=== PATIENT | male | born 1960 | race Hispanic/Latino ===

== ENCOUNTER 2016-08-25 16:05 | Emergency (ER) | payer BC ==
[2016-03-03 14:39] VITALS: BMI 23.6
== END 2016-08-25 19:00 | disposition home or self-care (01) ==
LOC: ED 16:05
DX: M54.2 Cervicalgia (principal)

== ENCOUNTER 2017-07-09 09:01 | Emergency (ER) | payer BC, OTHER ==
[2017-07-09 09:01] VITALS: BMI 23.6
--- NOTE | 2017-07-09 09:30 | ED PDOC ---
Arrival/HPI - General Chief Complaint: Cough, Cold, Congestion Time Seen by Provider: 07/09/17 09:19 Historian: Patient - History of Present Illness Narrative History of Present Illness (Text): 07/09/17 09:27 56yr old male presents today with a 2 month history of non productive cough associated with left sided pectoralis and left subscapular pain. pt states pain started prior to cough. pt denies uri symptoms. denies acid reflux. eating and drinking well. no n/v/d/c. pt denies shortness of breath. denies fever/chills. pt denies lower leg swelling or pain. Time/Duration: > month (2 months) Past Medical History - Provider Review Nursing Documentation Reviewed: Yes - Travel History Have you recently traveled outside [place] w/in the past 3 mons?: No - Past History Past History: No Previous - Tetanus Immunization Tetanus Immunization: Up to Date - Cardiac Hx Cardiac Disorders: No - Pulmonary Hx Respiratory Disorders: No - Neurological Hx Neurological Disorder: No - HEENT Hx HEENT Disorder: No - Renal Hx Renal Disorder: Yes Hx Kidney Stones: Yes - Endocrine/Metabolic Hx Endocrine Disorders: No - Hematological/Oncological Hx Blood Disorders: No - Integumentary Hx Dermatological Disorder: No - Musculoskeletal/Rheumatological Hx Musculoskeletal Disorders: Yes Hx Fractures: Yes - Gastrointestinal Hx Gastrointestinal Disorders: No - Genitourinary/Gynecological Hx Genitourinary Disorders: No - Psychiatric Hx Psychophysiologic Disorder: No Hx Substance Use: No - Past Surgical History Past Surgical History: No Previous - Surgical History Hx Tonsillectomy: Yes Other/Comment: R/T FRACTURE - Anesthesia Hx Anesthesia Reactions: No Hx Malignant Hyperthermia: No - Suicidal Assessment Feels Threatened In Home Enviroment: No Family/Social History - Physician Review Nursing Documentation Reviewed: Yes Family/Social History: Neoplasm/Cancer (breast cancer) Smoking Status: Never Smoked Hx Alcohol Use: No Hx Substance Use: No Allergies/Home Meds Allergies/Adverse Reactions: Allergies No Known Allergies Allergy (Verified 07/09/17 09:13) Review of Systems - Review of Systems Constitutional: absent: Fatigue, Fevers ENT: absent: Sore Throat, Sinus Congestion Respiratory: Cough. absent: SOB, Wheezing Cardiovascular: absent: Palpitations Gastrointestinal: absent: Abdominal Pain, Diarrhea, Vomiting Genitourinary Male: absent: Dysuria Musculoskeletal: Back Pain Skin: absent: Rash Neurological: absent: Headache, Dizziness Psychiatric: absent: Anxiety, Depression, Suicidal Ideation Physical Exam Vital Signs Reviewed: Yes Vital Signs Temp Pulse Resp BP Pulse Ox 07/09/17 09:56 86 20 146/86 99 07/09/17 09:25 97.8 F 77 16 142/80 98 Temperature: Afebrile Blood Pressure: Hypertensive Pulse: Regular Respiratory Rate: Normal Appearance: Positive for: Well-Appearing, Non-Toxic, Comfortable Pain Distress: None Mental Status: Positive for: Alert and Oriented X 3 - Systems Exam Head: Present: Atraumatic Mouth: Present: Moist Mucous Membranes Pharnyx: Present: Normal Neck: Present: Normal Range of Motion Respiratory/Chest: Present: Clear to Auscultation, Good Air Exchange, Other ( dry cough noted.). No: Respiratory Distress, Accessory Muscle Use, Wheezes, Tachypneic Cardiovascular: Present: Regular Rate and Rhythm Upper Extremity: Present: Normal ROM Lower Extremity: Present: Normal Inspection, Normal ROM. No: Edema Neurological: Present: GCS=15, Speech Normal Skin: Present: Warm, Dry, Normal Color. No: Rashes Psychiatric: Present: Alert, Oriented x 3 Medical Decision Making ED Course and Treatment: 07/09/17 09:31 56yr old male with 2 month history of dry cough. cbc wnl cmp: bun; 23 cr 1.0 ESR EKG; sinus bradycardia at 59 bpm normal axis normal intervals no ST elevations trop; within normal limits bnp; wnl cxr: wnl 07/09/17 10:51 pt given albuterol nebulizer. spoke with dr. santana; pt will need PFTs. PFTs ordered; 07/09/17 11:50 impression; cough pulmicort twice daily f/u with pmd return if symptoms worsen,persist or if new symptoms develop. - Lab Interpretations Lab Results: 07/09/17 09:20 07/09/17 09:20 Lab Results 07/09/17 09:30: Lactate Dehydrogenase 383, Total Creatine Kinase 48, Troponin I < 0.01, NT-Pro-B Natriuret Pep 40.5 07/09/17 09:30: D-Dimer, Quantitative 233 07/09/17 09:20: WBC 6.0, RBC 5.04, Hgb 15.5, Hct 46.0, MCV 91.3, MCH 30.8, MCHC 33.7, RDW 12.9, Plt Count 228, MPV 10.7, Gran % 60.8, Lymph % (Auto) 30.7, [place] % (Auto) 7.0 H, Eos % (Auto) 1.3 L, Baso % (Auto) 0.2, Gran # 3.62, Lymph # ( Auto) 1.8, [place] # (Auto) 0.4, Eos # (Auto) 0.1, Baso # (Auto) 0.01, ESR 5 07/09/17 09:20: Sodium 150 H, Potassium 4.2, Chloride 108 H, Carbon Dioxide 27, Anion Gap 18, BUN 23 H, Creatinine 1.0, Est GFR ( Amer) > 60, Est GFR ( Non-Af Amer) > 60, Random Glucose 104, Calcium 9.7, Total Bilirubin 2.9 H, AST 23, ALT 25, Alkaline Phosphatase 67, Total Protein 7.5, Albumin 4.6, Globulin 2.9, Albumin/Globulin Ratio 1.6, Triglycerides 89, Cholesterol 195, LDL Cholesterol Direct 102, HDL Cholesterol 58 - RAD Interpretation Radiology Orders: 07/09/17 09:19 CHEST TWO VIEWS (PA/LAT) [RAD] Stat Disposition/Present on Arrival - Present on Arrival Any Indicators Present on Arrival: No History of DVT/PE: No History of Uncontrolled Diabetes: No Urinary Catheter: No History of Decub. Ulcer: No History Surgical Site Infection Following: None - Disposition Have Diagnosis and Disposition been Completed?: Yes Diagnosis: Cough Disposition: HOME/ ROUTINE Disposition Time: 10:15 Patient Plan: Discharge Patient Problems: Current Active Problems Problem Status Onset Cough Acute Condition: GOOD Discharge Instructions (ExitCare): Cough in Adults Additional Instructions: follow up with the primary care physician within the next 2 days return if symptoms worsen,persist or if new symptoms develop. Prescriptions: Budesonide [Pulmicort Flexhaler] 90 mcg IH BID #1 [email or web address] Referrals: Eder Santana MD [Primary Care Provider] - Follow up with primary Damion Blanc MD [Staff Provider] - Follow up with primary Forms: [employer] ([place])
[2017-07-09 09:34] LABS: BASO # 0.01 K/mm3 (0.0-2.0); BASO % 0.2 % (0.0-3.0); EOS # 0.1 (0.0-0.7); EOS % 1.3 % (1.5-5.0); GRAN # 3.62 (1.4-6.5); GRAN % 60.8 % (50.0-68.0); HEMOGLOBIN 15.5 g/dL (14.0-18.0); LYMPH # 1.8 (1.2-3.4); LYMPH % 30.7 % (22.0-35.0); MEAN CELL VOLUME 91.3 fl (80.0-105.0); MEAN CORPUSCULAR HEMOGLOBIN 30.8 pg (25.0-35.0); MEAN CORPUSCULAR HGB CONC 33.7 g/dl (31.0-37.0); MEAN PLATELET VOLUME 10.7 fl (7.0-11.0); MONO # 0.4 (0.1-0.6); RBC 5.04 10^6/uL (3.5-6.1); RED CELL DISTRIBUTION WIDTH 12.9 % (11.5-14.5)
[2017-07-09 09:42] LABS: ALB/GLOB RATIO 1.6 (1.1-1.8); ALBUMIN 4.6 g/dL (3.0-4.8); ALT/SGPT 25 U/L (7-56); AST/SGOT 23 U/L (17-59); BLOOD UREA NITROGEN 23 mg/dL (7-21); CALCIUM 9.7 mg/dL (8.4-10.5); GFR NON-AFRICAN AMERICAN > 60; HDL CHOLESTEROL 58 mg/dL (29-60)
--- NOTE | 2017-07-09 09:49 | RAD ---
HISTORY: cough for 2 months COMPARISON: 03/31/2012 TECHNIQUE: Chest PA and lateral FINDINGS: LUNGS: No active pulmonary disease. PLEURA: No significant pleural effusion identified. No pneumothorax apparent. CARDIOVASCULAR: Normal. OSSEOUS STRUCTURES: No significant abnormalities. VISUALIZED UPPER ABDOMEN: Normal. OTHER FINDINGS: None. IMPRESSION: No active disease.
[2017-07-09 09:53] LABS: LDL CHOLESTEROL 102 mg/dL (0-129)
[2017-07-09 09:59] VITALS: RESP 20
[2017-07-09 10:04] VITALS: TEMP 97.8
[2017-07-09 10:19] LABS: B-TYPE NATRIURETIC PEPTIDE 40.5 pg/mL (0-450); TROPONIN I < 0.01 ng/mL
[2017-07-09] MEDS ORDERED: Albuterol 0.083% Inhal Sol (2.5 mg/3 mL) UD IH STA (10:20)
[2017-07-09 12:10] VITALS: PULSE 72; O2SAT 98
[2017-07-09 12:12] VITALS: BP 148/88
--- NOTE | 2017-07-09 13:20 | CARD ---
APPROVED REPORT EKG Measurement Heart [id number] <Conclusion> Sinus bradycardia Otherwise normal ECG
== END 2017-07-09 12:12 | disposition home or self-care (01) ==
LOC: ED 09:01
DX: R05 Cough (principal)